=== PATIENT | male | born 2000 | race Caucasian/White ===

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

== ENCOUNTER 2021-05-05 04:28 | Emergency (ER) | payer BC ==
[~2021-05-05] VITALS: Ht 190.5 cm; Wt 91.0 kg
[~2021-05-05 04:28] MED LIST changes: +FLUC200T PO; +ONDA8TAB13 PO
[2021-05-05] MEDS ORDERED: SUCR1TAB36 PO (05:47)
[2021-05-05] MEDS ORDERED: OMEP40CA6 PO (05:47)
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
[2021-05-05 05:58] VITALS: BP 142/90
== END 2021-05-05 05:58 | disposition home or self-care (01) ==
LOC: EDUNIT# 04:28 → ER 04:34
DX: K21.00 Gastro-esophageal reflux disease with esophagitis, without bleeding (principal)
CPT/HCPCS: 99283

== ENCOUNTER 2022-03-31 14:46 | Emergency (ER) | payer BC ==
[~2022-03-31] VITALS: Ht 190.5 cm; Wt 88.5 kg
[~2022-03-31 14:46] MED LIST changes: +OMEP40CA6 PO; +SUCR1TAB36 PO
[2022-03-31] MEDS ORDERED: ONDANSETRON 4 MG/2 ML (SDV) Z0FRAN ONE (14:55)
[2022-03-31] MEDS ORDERED: fentaNYL INJ 100 MCG/2 ML AMP IVP STA (15:35)
[2022-03-31] MEDS ORDERED: LACTATED RINGERS 1,000 ML IV STA ×2 (15:35→17:16)
[2022-03-31] MEDS ORDERED: KETOROLAC 30 MG/ML VIAL IVP STA (15:35)
[2022-03-31 15:45] LABS: BASOPHILS % (AUTO) 0 % (0-10); EOSINOPHILS % (AUTO) 0 % (0-10); HEMATOCRIT 43 % (40-54); HEMOGLOBIN 15.2 g/dL (13.3-17.7); LYMPHOCYTES # (AUTO) 1.1 X 10^3 (1.0-4.0); LYMPHOCYTES % (AUTO) 7 % (12-44); MEAN CORPUSCULAR HEMOGLOBIN 30 pg (25-34); MEAN CORPUSCULAR HGB CONC 35 g/dL (32-36); MEAN CORPUSCULAR VOLUME 84 fL (80-99); MONOCYTES # (AUTO) 0.4 X 10^3 (0.0-1.0); MONOCYTES % (AUTO) 3 % (0-12); NEUTROPHILS # (AUTO) 12.9 X 10^3 (1.8-7.8); NEUTROPHILS % (AUTO) 89 % (42-75); PLATELET COUNT 318 10^3/uL (130-400); WHITE BLOOD COUNT 14.4 10^3/uL (4.3-11.0)
[2022-03-31] MEDS ORDERED: ONDANSETRON 4 MG/2 ML (SDV) Z0FRAN IVP ONE (15:45)
[2022-03-31 15:47] LABS: ALBUMIN 4.7 GM/DL (3.2-4.5)
[2022-03-31 15:48] LABS: CHLORIDE 103 MMOL/L (98-107); POTASSIUM 4.2 MMOL/L (3.6-5.0); SODIUM 138 MMOL/L (135-145)
[2022-03-31 15:49] LABS: CALCIUM 9.7 MG/DL (8.5-10.1)
[2022-03-31 15:50] LABS: GLUCOSE 118 MG/DL (70-105); TOTAL PROTEIN 8.1 GM/DL (6.4-8.2)
[2022-03-31 15:51] LABS: CARBON DIOXIDE 22 MMOL/L (21-32)
[2022-03-31 15:52] LABS: BILIRUBIN,TOTAL 0.7 MG/DL (0.1-1.0)
[2022-03-31 15:53] LABS: ALKALINE PHOSPHATASE 79 U/L (40-136)
[2022-03-31 15:54] LABS: CREATININE SERUM 0.82 MG/DL (0.60-1.30); GFR ESTIMATED 127
[2022-03-31 15:55] LABS: BUN/CREATININE RATIO 16
[2022-03-31 15:56] LABS: ALANINE AMINOTRANSFERASE 17 U/L (0-55)
[2022-03-31 15:57] LABS: MAGNESIUM 1.9 MG/DL (1.6-2.4)
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
[2022-03-31 16:06] LABS: BAND NEUTROPHILS 1 %; LYMPHOCYTES % (MANUAL) 11 %; MONOCYTES % (MANUAL) 3 %; NEUTROPHILS % (MANUAL) 84 %
[2022-03-31 16:07] LABS: PLATELET ESTIMATE NORMAL; RBC MORPH NORMAL; REACTIVE LYMPHOCYTES 1 %
--- NOTE | 2022-03-31 16:37 | Diagnostic Imaging Report ---
PATIENT HISTORY: cental chest pain, vomiting. TECHNIQUE: Single frontal view of the chest. COMPARISON: 08/20/2018 FINDINGS: The lung volumes are normal. No focal consolidation is seen. No large pleural effusion or pneumothorax is seen. The cardiomediastinal silhouette is normal in size and contour. No acute osseous abnormality is seen. IMPRESSION: No acute pulmonary abnormality seen. Dictated by: Dictated on workstation # [id number]
[2022-03-31] MEDS ORDERED: ONDA4TAB11 PO (17:24)
[2022-03-31] MEDS ORDERED: PROMETHAZINE INJ 25 MG/ML (PHENERGAN) AMP IVP STA (17:58)
[2022-03-31] MEDS ORDERED: PROMETHAZINE INJ 25 MG/ML (PHENERGAN) AMP ONE (18:05)
[2022-03-31] MEDS ORDERED: PANTOPRAZOLE 40 MG (PROTONIX) VIAL IV ONE (18:30)
[2022-03-31 19:28] VITALS: BP 141/72
== END 2022-03-31 19:30 | disposition home or self-care (01) ==
LOC: EDUNIT# 14:46 → ER 14:49
DX: F10.129 Alcohol abuse with intoxication, unspecified (principal); R10.13 Epigastric pain; Z28.310 Unvaccinated for COVID-19
CPT/HCPCS: 36415; 71045; 80053; 83735; 85007; 85027

== ENCOUNTER 2022-05-27 00:11 | Emergency (ER) | payer BC ==
[~2022-05-27] VITALS: Ht 190.5 cm; Wt 90.9 kg
[~2022-05-27 00:11] MED LIST changes: +ONDA4TAB11 PO
[2022-05-27 01:28] VITALS: BP 120/74
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
[2022-05-27] MEDS ORDERED: LIDOCAINE 1% INJ 20 ML VIAL INJ ONE (02:15)
[2022-05-27] MEDS ORDERED: TETANUS,DIPTH,PERTUSS P/F (BOOSTRIX) 0.5 ML VIAL IM ONE (02:15)
== END 2022-05-27 03:35 | disposition left against medical advice (07) ==
LOC: EDUNIT# 00:11 → ER 00:16
DX: S01.412A Laceration without foreign body of left cheek and temporomandibular area, initial encounter (principal); S01.511A Laceration without foreign body of lip, initial encounter; Z23 Encounter for immunization; Z28.310 Unvaccinated for COVID-19; Y00.XXXA Assault by blunt object, initial encounter
CPT/HCPCS: 90715; 99284

== ENCOUNTER 2022-07-23 15:32 | Emergency (ER) | payer BC ==
[~2022-07-23] VITALS: Ht 190.5 cm; Wt 90.7 kg
[2022-07-23] MEDS ORDERED: KETOROLAC 30 MG/ML VIAL IVP ONE (16:30)
[2022-07-23] MEDS ORDERED: LACTATED RINGERS 1,000 ML IV ONE (16:30)
[2022-07-23] MEDS ORDERED: ONDANSETRON 4 MG/2 ML (SDV) Z0FRAN IVP ONE (16:30)
--- NOTE | 2022-07-23 16:42 | ED General ---
General Chief Complaint: Respiratory Problems Stated Complaint: VOMITING/STUFFY NOSE/BODYACHES Nursing Triage Note: PT AMB TO 10 WITH COMPLAINTS OF SOB AND N/V SINCE THIS MORNING. PT STATES THAT HE HAS VOMITED APPROX 6-7 TIMES TODAY. Source of Information: Patient Exam Limitations: No Limitations History of Present Illness Date Seen by Provider: Jul 23, 2022 Time Seen by Provider: 15:37 Initial Comments This 22-year-old young man presents to the emergency room with primary complaint of vomiting 6 or 7 times this morning. He has had some associated shortness of breath. He denies any fever. He did drink alcohol and smoke marijuana yesterday. He denies drinking alcohol to excess. Symptoms just started this morning. He feels he would benefit from IV hydration and medication. He also complains of headache. Allergies and Home Medications Allergies Coded Allergies: Archie Known Allergies (Unverified Allergy, Mild, 08/17/09) Patient Home Medication List Home Medication List Reviewed: Yes Fluconazole (Diflucan) 200 Mg Tablet, 200 MG PO ONCE Prescribed by: ROULA SALMERON on 07/13/19 1143 Omeprazole (Omeprazole) 40 Mg Capsule.dr, 40 MG PO DAILY Prescribed by: ELENITA BAIRES on 05/05/21 0575 Ondansetron (Ondansetron Odt) 8 Mg Tab.rapdis, 8 MG PO Q6H PRN for NAUSEA/VOMITING Prescribed by: ROULA SALMERON on 07/13/19 1117 Ondansetron (Ondansetron Odt) 4 Mg Tab.rapdis, 4 MG PO Q6H PRN for NAUSEA/VOMITING Prescribed by: MARGARITA HURST on 03/31/22 1724 Ondansetron (Ondansetron Odt) 4 Mg Tab.rapdis, 4 MG SL Q4H PRN for NAUSEA/VOMITING Prescribed by: ROLLY BRITTON on 07/23/22 1713 Sucralfate (Carafate) 1 Gm Tablet, 1 GM PO QIDACHS Prescribed by: ELENITA BAIRES on 05/05/21 0547 Review of Systems Review of Systems Constitutional: no symptoms reported EENTM: no symptoms reported Respiratory: see HPI Cardiovascular: no symptoms reported Gastrointestinal: see HPI Genitourinary: no symptoms reported Musculoskeletal: no symptoms reported Skin: no symptoms reported Psychiatric/Neurological: See HPI Hematologic/Lymphatic: No Symptoms Reported Immunological/Allergic: no symptoms reported Past Fmancmx-Pbgatn-Tloyuv Hx Patient Social History Tobacco Use?: No Substance use?: Yes Substance type: Marijuana Alcohol Use?: Yes Alcohol Frequency: Several times a month Immunizations Up To Date Tetanus Booster (TDap): Less than 5yrs PED Vaccines UTD: Yes Seasonal Allergies Seasonal Allergies: No Past Medical History Surgeries: No Respiratory: No Cardiac: No Neurological: No Reproductive Disorders: No Genitourinary: No Gastrointestinal: No Musculoskeletal: No Endocrine: No HEENT: No Cancer: No Psychosocial: No ADD/ADHD Integumentary: No Blood Disorders: No Family Medical History No Pertinent Family Hx Physical Exam Vital Signs Vital Signs - First Documented 07/23/22 15:53 Temp 35.9 Pulse 76 B/P (MAP) 132/87 (102) Pulse Ox 96 O2 Delivery Room Air Capillary Refill : Height, Weight, BMI Height: 6'1.00" Weight: 185lbs. 15.0oz. 84.701015uh; 24.00 BMI Method:Stated General Appearance: WD/WN, Mild Distress, Thin HEENT: PERRL/EOMI, Normal ENT Inspection Neck: Normal Inspection Respiratory: Lungs Clear, Normal Breath Sounds, No Accessory Muscle Use Cardiovascular: Regular Rate, Rhythm, No Edema, No Murmur Gastrointestinal: Soft; No Distended; Tenderness (mild, generalized) Extremity: Normal Inspection, No Pedal Edema Neurologic/Psychiatric: Alert, Oriented x3, No Motor/Sensory Deficits, Normal Mood/Affect Skin: Normal Color, Warm/Dry Progress/Results/Core Measures Suspected Sepsis SIRS Temperature: Pulse: 76 Respiratory Rate: Blood Pressure 132 /87 Mean: 102 Laboratory Tests 07/23/22 16:50: Creatinine 0.81 Results/Orders Lab Results Laboratory Tests Test 07/23/22 15:45 07/23/22 16:50 Range/Units Influenza Type A (RT-PCR) Not Detected Not Detecte Influenza Type B (RT-PCR) Not Detected Not Detecte SARS-CoV-2 RNA (RT-PCR) Not Detected Not Detecte Sodium Level 142 135-145 MMOL/L Potassium Level 3.5 L 3.6-5.0 MMOL/L Chloride Level 104 98-107 MMOL/L Carbon Dioxide Level 22 21-32 MMOL/L Anion Gap 16 H 5-14 MMOL/L Blood Urea Nitrogen 14 7-18 MG/DL Creatinine 0.81 0.60-1.30 MG/DL Estimat Glomerular Filtration Rate 128 BUN/Creatinine Ratio 17 Glucose Level 108 H 70-105 MG/DL Calcium Level 9.3 8.5-10.1 MG/DL Magnesium Level 1.9 1.6-2.4 MG/DL My Orders Orders - ROLLY MATHIS MD Covid 19 Inhouse Test (07/23/22 15:37) Influenza A And B By Pcr (07/23/22 15:37) Ed Iv/Invasive Line Start (07/23/22 16:23) Lactated Ringers (Lr 1000 Ml Iv Solution (07/23/22 16:30) Basic Metabolic Panel (07/23/22 16:23) Magnesium (07/23/22 16:23) Ondansetron Injection (Zofran Injectio (07/23/22 16:30) Ketorolac Injection (Toradol Injection) (07/23/22 16:30) Medications Given in ED Vital Signs/I&O 07/23/22 07/23/22 07/23/22 15:53 15:53 18:03 Temp 35.9 Pulse 76 B/P (MAP) 132/87 (102) 115/73 Pulse Ox 96 O2 Delivery Room Air Room Air 07/24/22 00:00 Intake Total 1000 ml Balance 1000 ml Capillary Refill : Blood Pressure Mean: 102 Progress Note : Progress Note Viral swabs were negative. BMP was unremarkable. Patient was treated with IV fluids, Toradol for headache, and Zofran for nausea with excellent improvement. He was discharged home in improved condition. Departure Impression Primary Impression: Nausea and vomiting Qualified Codes: R11.2 - Nausea with vomiting, unspecified Additional Impression: Acute headache Qualified Codes: R51.9 - Headache, unspecified Disposition: 01 HOME, SELF-CARE Condition: Improved Departure-Patient Inst. Decision time for Depature: 17:11 Referrals: NO,LOCAL PHYSICIAN (PCP/Family) Primary Care Physician Patient Instructions: Headache, Adult ED, Nausea and Vomiting, Adult Add. Discharge Instructions: With a clear liquid diet and gradually advance your diet with small quantities of bland food as tolerated. Take Zofran (ondansetron) dissolved under the tongue every 4 hours as needed for nausea and vomiting. Do not drink alcohol in excess and do not drink alcohol for at least several days. Avoid use of marijuana of any form as it is a known trigger for severe nausea, vomiting, and abdominal pain. This may be especially intense if used in combination with alcohol. If you are experiencing heartburn or upper abdominal pain, you may additionally treat with an antacid such as Pepcid (famotidine) or omeprazole. Tums may also be used. For pain or headache you may use Tylenol (acetaminophen) 1000 mg every 6 hours as needed and/or ibuprofen up to 600 mg every 6 hours as needed. Return to care if you have worsening symptoms despite following these instructions. All discharge instructions reviewed with patient and/or family. Voiced understanding. Scripts Ondansetron (Ondansetron Odt) 4 Mg Tab.rapdis 4 MG SL Q4H PRN for NAUSEA/VOMITING, #10 TAB Prov: ROLLY MATHIS MD 07/23/22 ROLLY MATHIS MD Jul 23, 2022 16:42
[2022-07-23] MEDS ORDERED: ONDA4TAB11 SL (17:13)
[2022-07-23 17:43] LABS: POTASSIUM 3.5 MMOL/L (3.6-5.0)
[2022-07-23 17:45] LABS: CALCIUM 9.3 MG/DL (8.5-10.1)
[2022-07-23 17:49] LABS: CREATININE SERUM 0.81 MG/DL (0.60-1.30)
[2022-07-23 17:51] LABS: MAGNESIUM 1.9 MG/DL (1.6-2.4)
[2022-07-23 18:03] VITALS: BP 115/73
== END 2022-07-23 18:04 | disposition home or self-care (01) ==
LOC: EDUNIT# 15:32 → ER 15:33
DX: R11.2 Nausea with vomiting, unspecified (principal); R51.9 Headache, unspecified; Z20.822 Contact with and (suspected) exposure to COVID-19; Z28.310 Unvaccinated for COVID-19
CPT/HCPCS: 36415; 80048; 83735; 87636; 99283